=== PATIENT | female | born 1990 | race Hispanic/Latino ===

== ENCOUNTER 2023-07-08 13:31 | Emergency (ER) | payer OTHER ==
[~2023-07-08] VITALS: Ht 160 cm; Wt 75.7 kg
[2023-07-08 16:15] LABS: SARS-CoV-2, RNA, NAAT NEGATIVE SARS CoV-2 (NEGATIVE)
[2023-07-08 16:21] LABS: INFLUENZA TYPE A Negative For Type A (NEGATIVE); INFLUENZA TYPE B Negative For Type B (NEGATIVE)
[2023-07-08] MEDS: FAMOTIDINE 20MG TAB PO ONE (16:46)
[2023-07-08] MEDS: IBUPROFEN 600 MG TABLET PO ONE (16:47)
[2023-07-08] MEDS: PREDNISONE 20 MG TABLET PO ONE (16:47)
[2023-07-08 17:02] VITALS: BP 115/64; PULSE 87; RESP 20; O2SAT 96
[2023-07-08] MEDS ORDERED: IBUP-2070 PO (17:19)
[2023-07-08] MEDS ORDERED: PRED20TA3 PO (17:19)
[2023-07-08] MEDS ORDERED: BROM118S48 PO (17:19)
[2023-07-08 17:32] VITALS: TEMP 97.7
== END 2023-07-08 17:59 | disposition home or self-care (01) ==
LOC: EDH 13:31
DX: J06.9 Acute upper respiratory infection, unspecified (principal); Z20.822 Contact with and (suspected) exposure to COVID-19
CPT/HCPCS: 87635; 87804